=== PATIENT | male | born 1950 | race Caucasian/White ===

== ENCOUNTER 2017-08-13 18:23 | Observation (INO) | payer BC ==
--- NOTE | 2017-08-13 18:40 | CPEKG ---
Heart Rate: 166 RR Interval: 361 QRSD Interval: 70 QT Interval: 272 QTC Interval: 453 QRS [place]: 49 EKG Severity - ABNORMAL ECG - EKG Impression: ATRIAL FIBRILLATION WITH RAPID V-RATE EKG Impression: MULTIFORM VENTRICULAR PREMATURE COMPLEXES EKG Impression: REPOLARIZATION ABNORMALITY, PROB RATE RELATED Electronically Signed By: Jeramy Ahumada 13-Aug-2017 19:06:17
[2017-08-13] MEDS ORDERED: NS 500 ML IV ONE (18:49)
[2017-08-13] MEDS ORDERED: DILTIAZEM 125 MG in D5W 125 ML IV ONE (18:49)
[2017-08-13] MEDS ORDERED: DILTIAZEM 25 MG/5 ML VIAL IVP ONE (18:49)
[2017-08-13 19:05] LABS: % IMMATURE GRANULYOCYTES 0.5 % (0.0-1.1); ABSOLUTE IMMATURE GRANULOCYTES 0.05 10^3/uL (0.00-0.10); ADD DIFF? NO; ADD MORPH? NO; ADD SCAN? NO; ATYPICAL LYMPHOCYTE FLAG 20 (0-99); FRAGMENT RBC FLAG 0 (0-99); HEMATOCRIT 48.1 % (40.0-51.0); HEMOGLOBIN 16.7 g/dL (13.7-17.5); LEFT SHIFT FLG 0 (0-99); LIPEMIA HEMOLYSIS FLAG 90 (0-99); MEAN CELL HEMOGLOBIN 30.1 pg (27.9-34.1); MEAN CELL HEMOGLOBIN CONCENTR. 34.7 g/dL (32.4-36.7); MEAN CELL VOLUME 86.7 fL (81.5-99.8); MEAN PLATELET VOLUME 9.9 fL (8.7-11.7); PLATELET CLUMPS FLAG 30 (0-99); PLATELET COUNT 261 10^3/uL (150-400); RED BLOOD CELL COUNT 5.55 10^6/uL (4.40-6.38); RED CELL DISTRIBUTION WIDTH 13.2 % (11.5-15.2)
--- NOTE | 2017-08-13 19:06 | EDPHY ---
H & P Time Seen by Provider: 08/13/17 18:35 HPI/ROS: CHIEF COMPLAINT: Lightheadedness in AFib HISTORY OF PRESENT ILLNESS: Patient is a history of atrial fibrillation for about 10 years and was cardioverted last 2 years ago. He has had 3 conversion to total. He has never been anticoagulated because of the hemophilia. Patient developed atrial fibrillation symptoms 2 nights ago on Saturday night which lasted the entire evening and then resolved. It recurred again today feeling palpitations and lightheaded and dizzy while standing up. Symptoms moderate. Not associated with chest pain. A little bit of shortness of breath with exertion. REVIEW OF SYSTEMS: Eye: no change in vision ENT: "I feel little bit weird in my throat "but no sore throat Cardiac: no chest pain or syncope Pulmonary: No cough or hemoptysis Abdomen: no vomiting, diarrhea, abdominal pain Musculoskeletal: no back pain or leg swelling Skin: no rash Neuro: no headache Constitutional: no fever : no urinary symptoms A comprehensive 10 point review of systems is otherwise negative aside from elements mentioned in the history of present illness. PAST MEDICAL HISTORY: Includes hypertension, atrial fibrillation, hemophilia, knee replacement. Social history: Visiting from [facility] [place], here with his and his 's sister. No tobacco or alcohol. General Appearance: Alert and conversant, cooperative. Eyes: No scleral icterus. ENT, Mouth: Normal mucous membranes. Respiratory: Normal respiratory effort, breath sounds equal, lungs are clear to auscultation. No rales. Cardiovascular: Tachycardic irregular rate and rhythm Gastrointestinal: Abdomen is soft and non tender. Neurological: Alert and oriented x3. Normally conversant. Face symmetric, normal movement and sensation in all extremities. Skin: Erythema on the face Musculoskeletal: No peripheral edema and no joint swelling. Psychiatric: Not agitated. Emergency Department course/MDM: Patient presents in rapid atrial fibrillation, hypertensive. Plan for rate control and cardiology consultation. He last had water at 6:30 p.m. and had a [employer] eggs and giraldo sandwich at 3 :30 p.m.. At this point I think that sedation for cardioversion tonight given his recent oral intake would not be indicated given his relative clinical stability. 20 mg IV diltiazem, followed by diltiazem drip. 1947: Heart rate 115, blood pressure 140/85, still in atrial fibrillation. Discussed with command center analyst Dr. Loc Bonilla who recommends no anticoagulation given his history of hemophilia, rate control, NPO after midnight for cardioversion in the morning if he does not convert after medical therapy. Smoking Status: Never smoked Constitutional: Initial Vital Signs Temperature (C) 36.4 C 08/13/17 18:27 Heart Rate 116 H 08/13/17 18:27 Respiratory Rate 20 08/13/17 18:27 Blood Pressure 156/110 H 08/13/17 18:27 O2 Sat (%) 96 08/13/17 18:27 O2 Delivery Mode Room Air Allergies/Adverse Reactions: Penicillins Allergy (Verified 08/13/17 18:25) Home Medications: Medication Instructions Recorded Lisinopril/Hctz 20/12.5MG 1 ea PO BID 08/13/17 [Zestoretic/Prinzide 20/12.5MG (*)] Magnesium Oxide [Magnesium Oxide 400 mg PO DAILY 08/13/17 400 mg (*)] Metoprolol Succinate Xr [Toprol Xl 50 mg PO DAILY 08/13/17 50 mg (*)] Multivitamins [Multivitamin (*)] 1 each PO DAILY 08/13/17 Omeprazole [Prilosec 20 mg] 20 mg PO DAILY 08/13/17 Potassium Cl [Klor-Con 20 meq (*)] 20 meq PO DAILY 08/13/17 Zolpidem Tartrate [Ambien 5MG (*)] 2.5 - 5 mg PO HS PRN 08/13/17 Medical Decision Making - Diagnostics EKG Interpretation: 12-lead EKG interpreted by me; official reading is in trace master. My interpretation is atrial fibrillation rate 166 with PVCs. Imaging Results: Imaging Impressions Chest X-Ray 08/13/17 18:50 Impression: No acute thoracic abnormality. Differential Diagnosis: Differential diagnosis considered for narrow complex tachycardia including but not limited to various causes of sinus tachycardia, SVT, atrial flutter and atrial fibrillation. Consult/Admit Bed Type: Loc Bonilla 1913, Marvin 2010 Critical Care Time: Critical care time spent by me, Dr. Ahumada, exclusively with the care of this patient was 35 minutes, exclusive of PA or OPTICAL LABORATORY TECHNICIAN time and exclusive of separate procedures. The organ system at risk was cardiovascular and I ordered IV diltiazem drip, consultation with command center analyst and hospitalist, multiple diagnostic studies and review of history; to stabilize the patient and prevent worsening of the patient's condition. - Data Points Laboratory Results: Laboratory Results 08/13/17 18:54 08/13/17 18:54 08/13/17 08/13/17 18:54 18:54 WBC 11.02 10^3/uL H 10^3/uL (3.80-9.50) RBC 5.55 10^6/uL 10^6/uL (4.40-6.38) Hgb 16.7 g/dL g/dL (13.7-17.5) Hct 48.1 % % (40.0-51.0) MCV 86.7 fL fL (81.5-99.8) MCH 30.1 pg pg (27.9-34.1) MCHC 34.7 g/dL g/dL (32.4-36.7) RDW 13.2 % % (11.5-15.2) Plt Count 261 10^3/uL 10^3/uL (150-400) MPV 9.9 fL fL (8.7-11.7) Neut % (Auto) 59.4 % % (39.3-74.2) Lymph % (Auto) 27.9 % % (15.0-45.0) [place] % (Auto) 9.3 % % (4.5-13.0) Eos % (Auto) 2.4 % % (0.6-7.6) Baso % (Auto) 0.5 % % (0.3-1.7) Nucleat RBC Rel Count 0.0 % % (0.0-0.2) Absolute Neuts (auto) 6.56 10^3/uL H 10^3/uL (1.70-6.50) Absolute Lymphs (auto) 3.07 10^3/uL H 10^3/uL (1.00-3.00) Absolute Monos (auto) 1.03 10^3/uL H 10^3/uL (0.30-0.80) Absolute Eos (auto) 0.26 10^3/uL 10^3/uL (0.03-0.40) Absolute Basos (auto) 0.05 10^3/uL 10^3/uL (0.02-0.10) Absolute Nucleated RBC 0.00 10^3/uL 10^3/uL (0-0.01) Immature Gran % 0.5 % % (0.0-1.1) Immature Gran # 0.05 10^3/uL 10^3/uL (0.00-0.10) Sodium 139 mEq/L mEq/L (134-144) Potassium 4.0 mEq/L mEq/L (3.5-5.2) Chloride 103 mEq/L mEq/L (97-110) Carbon Dioxide 19 mEq/l L mEq/l (22-31) Anion Gap 17 mEq/L H mEq/L (8-16) BUN 19 mg/dL mg/dL (7-23) Creatinine 1.1 mg/dL mg/dL (0.7-1.3) Estimated GFR > 60 Glucose 94 mg/dL mg/dL (70-100) Calcium 10.0 mg/dL mg/dL (8.5-10.4) Troponin I < 0.012 ng/mL ng/mL (0.000-0.034) Medications Given: Discontinued Medications Diltiazem HCl (Cardizem 25 Mg/5 Ml Vial) 20 mg IVP EDNOW ONE Stop: 08/13/17 18:50 Last Admin: 08/13/17 19:00 Dose: 20 mg Diltiazem HCl 125 mg/ Dextrose 125 mls @ 0 mls/hr IV EDNOW ONE; As Directed PRN Reason: Protocol Stop: 08/13/17 18:50 Last Admin: 08/13/17 19:10 Dose: 125 mls Sodium Chloride (Ns) 500 mls @ 1,000 mls/hr IV EDNOW ONE PRN Reason: Protocol Stop: 08/13/17 19:18 Last Admin: 08/13/17 19:19 Dose: 500 mls Departure - Departure Disposition: [facility] Acute Clinical Impression: Atrial fibrillation Qualifiers: Atrial fibrillation type: paroxysmal Qualified Code(s): I48.0 - Paroxysmal atrial fibrillation Condition: Good
[2017-08-13 19:24] LABS: ANION GAP 17 mEq/L (8-16); CARBON DIOXIDE 19 mEq/l (22-31); CHLORIDE 103 mEq/L (97-110); CREATININE 1.1 mg/dL (0.7-1.3); GLOMERULAR FILTRATION RATE > 60; GLUCOSE 94 mg/dL (70-100); SODIUM 139 mEq/L (134-144)
[2017-08-13 19:35] LABS: TROPONIN I < 0.012 ng/mL (0.000-0.034)
[2017-08-13] MEDS ORDERED: ACETAMINOPHEN 325 MG TAB PO PRN (20:16)
[2017-08-13] MEDS ORDERED: ONDANSETRON DISINTEGRATING 4 MG TAB PO PRN (20:16)
[2017-08-13] MEDS ORDERED: ONDANSETRON 4 MG/2 ML VIAL IVP PRN (20:16)
[2017-08-13] MEDS ORDERED: DILTIAZEM 125 MG in D5W 125 ML IV SCH (20:30)
[2017-08-13] MEDS ORDERED: ZOLPIDEM TARTRATE 5 MG TAB PO PRN (21:08)
[2017-08-13] MEDS ORDERED: NS 1,000 ML IV SCH (21:15)
--- NOTE | 2017-08-13 21:46 | GHP ---
[f rep st] HISTORY AND PHYSICAL DATE OF ADMISSION: 08/13/2017 CHIEF COMPLAINT: Atrial fibrillation with RVR, hemophilia. HISTORY OF PRESENT ILLNESS: A pleasant 67-year-old male with history of atrial fibrillation, not on anticoagulation due to hemophilia, presenting with palpitations and dizziness. He and his are here visiting from [place]. He has had 3 cardioversions in the past. He first noticed palpitations and a fast heart rate on Saturday night, and it self corrected. He was up in [place] today walking around. They then came to [place] and had a sit down because he felt his heart racing and dizziness with standing. He denies any chest pain. He thinks he has been drinking enough fluids while here. However, he did have diarrhea starting on Saturday, several episodes for the past couple days, now resolved. No fevers, chills, or sweats. No cough. REVIEW OF SYSTEMS: I completed a 10-point review of systems, negative except as noted in HPI. PAST MEDICAL HISTORY: Hypertension, atrial fibrillation, hemophilia. PAST SURGICAL HISTORY: Two knee surgeries, ankle fusion, wisdom teeth. SOCIAL HISTORY: Visiting from [place], [place], here with his . No alcohol, tobacco, or illicits. FAMILY HISTORY: Noncontributory. HOME MEDICATIONS: Ambien p.r.n., multivitamin, magnesium, lisinopril/HCTZ 20/ 12.5 mg twice daily, metoprolol 50 mg daily, potassium 20 mEq daily, omeprazole. ALLERGIES: Penicillin. PHYSICAL EXAM: VITAL SIGNS: Temperature 36.8, blood pressure 114/87, heart rate 112, respiration 14, and 97% on room air. GENERAL: Well-appearing male sitting up in bed, no acute distress. HEENT: PERRLA. Does appear red in the face. Warm to touch. CARDIOVASCULAR: Tachy, irregularly irregular. No murmurs, gallops, or rubs. Trace pedal edema. LUNGS: Clear. No crackles or wheezing. ABDOMEN: Soft, nontender, nondistended. Positive bowel sounds. : No [place]. MUSCULOSKELETAL: 5/5 upper lower extremity strength. NEURO: 2 through 12 intact. PSYCH: Alert and oriented x3, very pleasant. LABORATORY DATA: WBCs 11, hemoglobin is 16, hematocrit 48, platelets 261, sodium 139, potassium 4, chloride 103, carbon dioxide 19, anion gap 19, creatinine 1.1 do not have a baseline. Troponin is less than 0.012. EKG, personally reviewed by me, atrial fibrillation with RVR, heart rate in 160s. Chest x-ray, personally reviewed by me, no effusion or opacity. ASSESSMENT AND PLAN: 1. Atrial fibrillation with rapid ventricular response: Suspect secondary to dehydration with diarrhea, [place], [place]. We will monitor in the PCU on telemetry on a diltiazem drip. No anticoagulation with hemophilia. Dr. Bonilla with Cardiology was consulted. If he does not convert, can consider cardioversion in the morning. 2. Hypertension: We will hold antihypertensive while he is on diltiazem. 3. Hemophilia: H and H stable. No evidence of bleeding. 4. Dizziness: This has resolved, likely secondary to rapid atrial fibrillation. 5. Diet: Regular now, n.p.o. after midnight. 6. Deep vein thrombosis prophylaxis: None. 7. The patient warrants observation admission given atrial fibrillation with RVR, warranting IV diltiazem and telemetry. /[id number]/MODL MTDD
[2017-08-14] MEDS: METOPROLOL SUCCINATE XR 50 MG TAB PO SCH ×2 (06:36→07:01)
[2017-08-14 07:18] VITALS: BP 110/72; PULSE 75; RESP 20; TEMP 98.2; O2SAT 94
--- NOTE | 2017-08-14 08:04 | HOSPPROG ---
Hospitalist Progress Note Assessment/Plan: A fib with RVR - Hypertension - Hemophilia - no anti-coagulation Objective: Vital Signs Temp Pulse Resp BP Pulse Ox 36.8 C 75 20 110/72 94 08/14/17 07:16 08/14/17 07:16 08/14/17 07:16 08/14/17 07:16 08/14/17 07:16 08/13/17 08/14/17 08/15/17 05:59 05:59 05:59 Intake Total 2000 Output Total 300 Balance 1700 ICD10 Worksheet Patient Problems: Problems Problem Status Onset Atrial fibrillation Acute
[2017-08-14] MEDS ORDERED: MAGNESIUM OXIDE 400 MG TAB PO SCH (09:00)
[2017-08-14] MEDS ORDERED: MULTIVITAMINS 1 EACH TAB PO SCH (09:00)
[2017-08-14] MEDS ORDERED: PANTOPRAZOLE SODIUM 40 MG TAB PO SCH (09:00)
[2017-08-14 09:05] LABS: ANION GAP 13 mEq/L (8-16); CALCIUM 9.2 mg/dL (8.5-10.4); CARBON DIOXIDE 20 mEq/l (22-31); CHLORIDE 108 mEq/L (97-110); GLOMERULAR FILTRATION RATE > 60; GLUCOSE 104 mg/dL (70-100); POTASSIUM 4.2 mEq/L (3.5-5.2); SODIUM 141 mEq/L (134-144)
--- NOTE | 2017-08-14 10:57 | GDS ---
[f rep st] DISCHARGE SUMMARY DISCHARGE DIAGNOSES: 1. Atrial fibrillation with rapid ventricular response. 2. Hypertension. 3. Hemophilia. HISTORY: For details, please see the history and physical dated August 13. In brief, the patie janusz is a 67-year-old male visiting from [place], who presented to the emergency department in rapid atrial fibrillation. He is noted to be hemophiliac and therefore does not take anticoagulation or a nti-platelet therapy for stroke prevention for atrial fibrillation. He was admitted to the hospital for further management of his rapid AFib. HOSPITAL COURSE: Patient admitted to the progressive care unit. He was treated with a diltiazem dri p, and he spontaneously converted to normal sinus rhythm. As above, he was not anticoagulated due to his history of hemophilia. On the morning of discharge, he feels well. His heart rate is in the 70 s. He maintains normal sinus rhythm. He has had no evidence of heart failure. He will be discharge d on his regular dose of metoprolol. I also gave him a prescription for short-acting oral diltiazem to be used only if he develops rapid AFib and if that does not successfully control it, he should pre sent to the nearest emergency department. DISPOSITION: Patient is discharged home in stable condition. FOLLOWUP: He will follow up with his lay out inspector upon returning to [place]. DISCHARGE MEDICATIONS: Please see [facility] for complete updated outpatient medication list. He will continue all outpatient medications as previously prescribed. New medications include diltiazem 30 mg p.o. q.6 hours p.r.n. as a backup plan for rapid AFib (#10, no refills). /[id number]/MODL
[2017-08-14] MEDS ORDERED: FLU VACC QS 2017-18 (3YR+)/PF 0.5 ML SYR (FLUARIX QUAD) IM ONE (11:00)
--- NOTE | 2017-08-14 15:37 | ASDISCHSUM ---
Discharge Information Plan Status:Home with No Needs Medically Cleared to Leave:08/14/2017 Discharge Date:08/14/2017 11:49 AM CM D/C Disposition: ADT D/C Disposition:Home, Routine, Self-Care Projected Discharge Date:08/14/2017 12:00 AM Transportation at D/C: Discharge Delay Reason: Follow-Up Date:08/14/2017 12:00 AM Discharge Slot: Final Diagnosis: Placement Information Patient Contact Information Contact Name:ANRULFO Relationship: Address:[address] Work Phone: City:[place] Alternate Phone: [facility]/Zip Code:[place] [address] Email: Financial Information Financial Class:HMO and PPO Plans Primary Plan Desc: OUT OF STATE PPO Primary Plan Number:[id number] Secondary Plan Desc: Secondary Plan Number: Assessment Information Intervention Information
== END 2017-08-14 11:49 | disposition home or self-care (01) ==
LOC: F2W 20:43
PROVIDERS: ADMIT Internal Medicine; ATTEND Hospitalist
PROC: 3E033RZ Introduction of Antiarrhythmic into Peripheral Vein, Percutaneous Approach (ICD-10-PCS; principal; 2017-08-13)
DX: I48.0 Paroxysmal atrial fibrillation (principal); I10 Essential (primary) hypertension; D66 Hereditary factor VIII deficiency
CPT/HCPCS: 71020; 93005; 96365; 96375; 99291; G0378